=== PATIENT | male | born 1985 | race Two or more races ===

== ENCOUNTER 2023-06-05 22:28 | Emergency (ER) | payer SELFPAY ==
[2023-06-05] MEDS ORDERED: methylPREDNISolone Acetate 80 MG/ML SDV IM ONE (23:04)
[2023-06-05] MEDS: Triamcinolone Acetonide 40 MG/ML 1 ML SDV INJECT ONE (23:26)
[2023-06-05] MEDS: Sodium Chloride 0.9% 10 ML Syringe FLUSH PRN (23:27)
[2023-06-05] MEDS: Ketorolac 30 MG/ML SDV IVPUSH ONE (23:27)
[2023-06-05] MEDS: Orphenadrine 60 MG/2 ML Inj IV ONE (23:27)
== END 2023-06-06 00:15 | disposition home or self-care (01) ==
LOC: JD.ED 22:28
DX: M54.42 Lumbago with sciatica, left side (principal)
CPT/HCPCS: 96372; 96374; 96375; 99283; J1885; J2360; J3301; J3490; 99284

== ENCOUNTER 2023-07-09 23:31 | Emergency (ER) | payer SELFPAY ==
[2023-07-10] MEDS: Ketorolac 60 MG/2 ML SDV IM ONE (00:52)
[2023-07-10] MEDS: HYDROmorphone 1 MG/ML Syringe IM ONE (00:52)
[2023-07-10] MEDS: HYDROmorphone 0.5 MG/0.5 ML Syringe IM ONE (02:01)
== END 2023-07-10 02:04 | disposition home or self-care (01) ==
LOC: JD.ED 23:31
DX: M54.42 Lumbago with sciatica, left side (principal)
CPT/HCPCS: 96372; 99283; J1170; J1885